=== PATIENT | male | born 1970 | race Caucasian/White ===

== ENCOUNTER 2017-05-30 18:05 | Emergency (ER) | payer OTHER ==
[~2017-05-30] VITALS: Ht 177.8 cm; Wt 112.7 kg
[2017-05-30 18:12] VITALS: BP 134/98
[2017-05-30] MEDS ORDERED: ERYTHROMYC1 APPLICAT BOTH EYES (21:15)
== END 2017-05-30 21:41 | disposition home or self-care (01) ==
LOC: EME 18:05
DX: T15.02XA Foreign body in cornea, left eye, initial encounter (principal); X58.XXXA Exposure to other specified factors, initial encounter; Y93.89 Activity, other specified; Y99.0 Civilian activity done for income or pay
CPT/HCPCS: 70480; 99281; 99285